=== PATIENT | male | born 1950 | race Caucasian/White ===

== ENCOUNTER 2016-12-21 12:34 | Inpatient (IN) | payer BC, OTHER ==
[~2016-12-21] VITALS: Ht 167.6 cm; Wt 88.5 kg
[~2016-12-21 12:34] MED LIST: ITRA100C PO; SULF1TAB24 PO
[2016-12-21 13:09] LABS: BARBITURATES NEG (NEG); BENZODIAZEPINES NEG (NEG); CANNABINOIDS NEG (NEG); COCAINE NEG (NEG); METHADONE NEG (NEG); OPIATES NEG (NEG); PHENCYCLIDINE NEG (NEG)
--- NOTE | 2016-12-21 13:12 | PHYS DOC ---
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 Symptoms started 3 days ago when he woke up in the morning. 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 Patient denies any difficulty speaking or swallowing ambulating with denies any unilateral weakness numbness or tingling. He said that the right side of his body has felt cold intermittently and he assured me that it was not a weakness numbness or tingling rather just the temperature of his skin was cold. He has diabetes and hypertension but denies any prior strokes. Review of Systems Review of Systems Constitutional: Denies fever or chills [] Eyes: Denies change in visual acuity. + loss of vision. HENT: Denies nasal congestion or sore throat [] Respiratory: Denies cough or shortness of breath [] Cardiovascular: No additional information not addressed in HPI [] GI: Denies abdominal pain, nausea, vomiting, bloody stools or diarrhea [] : Denies dysuria or hematuria [] Musculoskeletal: Denies back pain or joint pain [] Integument: Denies rash or skin lesions [] Neurologic: Denies headache, focal weakness or sensory changes [] Allergies Allergies Allergies Coded Allergies Type Severity Reaction Last Updated Verified No Known Drug Allergies 03/25/16 No Physical Exam Physical Exam Constitutional: Well developed, well nourished, no acute distress, non-toxic appearance. [] HENT: Normocephalic, atraumatic, bilateral external ears normal, oropharynx moist, no oral exudates, nose normal. [] Eyes: Pupils are quite dilated and nonreactive at this time. He does have left- sided visual loss. Neck: Normal range of motion, no tenderness, supple, no stridor. [] Cardiovascular:Heart rate regular rhythm, no murmur [] Lungs & Thorax: Bilateral breath sounds clear to auscultation [] Abdomen: Bowel sounds normal, soft, no tenderness, no masses, no pulsatile masses. [] Skin: Warm, dry, no erythema, no rash. [] Back: No tenderness, no CVA tenderness. [] Extremities: No tenderness, no cyanosis, no clubbing, ROM intact, no edema. [] Neurologic: Alert and oriented X 3, normal motor function, normal sensory function, no focal deficits noted. [] Current Patient Data Vital Signs Vital Signs Date Time Temp Pulse Resp B/P (MAP) Pulse Ox O2 Delivery O2 Flow Rate FiO2 12/21/16 13:19 76 19 123/73 (90) 98 Room Air 12/21/16 12:59 98.1 98.1 Lab Values Laboratory Tests Test 12/21/16 12:45 12/21/16 13:10 Urine Opiates Screen Neg (NEG) Urine Methadone Screen Neg (NEG) Urine Barbiturates Neg (NEG) Urine Phencyclidine Screen Neg (NEG) Urine Amphetamine/Methamphetamine Neg (NEG) Urine Benzodiazepines Screen Neg (NEG) Urine Cocaine Screen Neg (NEG) Urine Cannabinoids Screen Neg (NEG) Urine Ethyl Alcohol Neg (NEG) White Blood Count 10.2 x10^3/uL (4.0-11.0) Red Blood Count 4.99 x10^6/uL (4.30-5.70) Hemoglobin 15.4 g/dL (13.0-17.5) Hematocrit 44.2 % (39.0-53.0) Mean Corpuscular Volume 89 fL (79-100) Mean Corpuscular Hemoglobin 31 pg (25-35) Mean Corpuscular Hemoglobin Concent 35 g/dL (31-37) Red Cell Distribution Width 13.2 % (11.5-14.5) Platelet Count 165 x10^3/uL (140-400) Neutrophils (%) (Auto) 57 % (31-73) Lymphocytes (%) (Auto) 34 % (24-48) Monocytes (%) (Auto) 6 % (0-9) Eosinophils (%) (Auto) 2 % (0-3) Basophils (%) (Auto) 1 % (0-3) Neutrophils # (Auto) 5.8 x10^3uL (1.8-7.7) Lymphocytes # (Auto) 3.4 x10^3/uL (1.0-4.8) Monocytes # (Auto) 0.6 x10^3/uL (0.0-1.1) Eosinophils # (Auto) 0.2 x10^3/uL (0.0-0.7) Basophils # (Auto) 0.1 x10^3/uL (0.0-0.2) Prothrombin Time 12.7 SEC (11.7-14.0) Prothrombin Time INR 1.0 (0.8-1.1) PTT 26 SEC (24-38) Sodium Level 137 mmol/L (136-145) Potassium Level 4.5 mmol/L (3.5-5.1) Chloride Level 104 mmol/L (98-107) Carbon Dioxide Level 26 mmol/L (21-32) Anion Gap 7 (6-14) Blood Urea Nitrogen 22 mg/dL (8-26) Creatinine 0.9 mg/dL (0.7-1.3) Estimated GFR (Cockcroft-Gault) 85.0 BUN/Creatinine Ratio 24 (6-20) H Glucose Level 142 mg/dL (70-99) H Calcium Level 9.5 mg/dL (8.5-10.1) Magnesium Level 1.8 mg/dL (1.8-2.4) Total Bilirubin 0.3 mg/dL (0.2-1.0) Aspartate Amino Transferase (AST) 16 U/L (15-37) Alanine Aminotransferase (ALT) 24 U/L (16-63) Alkaline Phosphatase 100 U/L (46-116) Creatine Kinase 102 U/L (39-308) Troponin I Quantitative < 0.017 ng/mL (0.000-0.055) [id number]-Type Natriuretic Peptide 67 pg/mL (0-124) Total Protein 7.4 g/dL (6.4-8.2) Albumin 3.5 g/dL (3.4-5.0) Albumin/Globulin Ratio 0.9 (1.0-1.7) L Thyroid Stimulating Hormone (TSH) 0.676 uIU/mL (0.358-3.74) Ethyl Alcohol Level < 10 mg/dL (0-10) Laboratory Tests 12/21/16 13:10 Laboratory Tests 12/21/16 13:10 EKG EKG [] Radiology/Procedures Radiology/Procedures Exam performed: CT scan of the head without contrast. Date of Service: 12/21/16. Comparison: None available. Clinical History: Patient woke up Sunday morning with revision. Technique: Helical acquisitions are obtained from the foramen magnum to the vertex without intravenous administration of contrast. Findings: The ventricles are midline without evidence of dilatation. Normal sandoval-white differentiation is maintained. There is no extra axial fluid collection, intraparenchymal hemorrhage or mass lesion. The visualized portions of the orbits, paranasal sinuses and the mastoid air cells appear clear. The calvarium is intact. Impression: 1. No acute intracranial process detected. PQRS Compliance Statement: One or more of the following individualized dose reduction techniques were utilized for this examination: 1. Automated exposure control 2. Adjustment of the mA and/or kV according to patient size 3. Use of iterative reconstruction technique DICTATED and SIGNED BY: MARLON REIS MD DATE: 12/21/16 8564 Course & Med Decision Making Course & Med Decision Making I spoke to Dr. lora and she requested CT head without contrast and then brain with and without depending on his creatinine level. CT looks okay so brain MRI with and without contrast are being ordered and patient was given aspirin and will be admitted to the hospital for further observation and treatment. Patient aware and agreeable with plan. Dragon Disclaimer Dragon Disclaimer This electronic medical record was generated, in whole or in part, using a voice recognition dictation system. Departure Departure Impression: Primary Impression: Left homonymous hemianopsia Disposition: ADMITTED INPATIENT Condition: GOOD Referrals: GLENN ANGEL MD (PCP) FAWN SHAW DO December 21, 2016 13:12
[2016-12-21 13:16] LABS: BASO # 0.1 x10^3/uL (0.0-0.2); BASO % 1 % (0-3); EOS % 2 % (0-3); HEMATOCRIT 44.2 % (39.0-53.0); HEMOGLOBIN 15.4 g/dL (13.0-17.5); LYMPH # 3.4 x10^3/uL (1.0-4.8); LYMPH % 34 % (24-48); MEAN CORPUSCULAR HEMOGLOBIN 31 pg (25-35); MEAN CORPUSCULAR HGB CONC 35 g/dL (31-37); MEAN CORPUSCULAR VOLUME 89 fL (79-100); MONO % 6 % (0-9); NEUT % 57 % (31-73); PLATELET COUNT 165 x10^3/uL (140-400); RED BLOOD COUNT 4.99 x10^6/uL (4.30-5.70); RED CELL DISTRIBUTION WIDTH 13.2 % (11.5-14.5); WHITE BLOOD COUNT 10.2 x10^3/uL (4.0-11.0)
[2016-12-21 13:34] LABS: CALCIUM 9.5 mg/dL (8.5-10.1); CREATININE 0.9 mg/dL (0.7-1.3); POTASSIUM 4.5 mmol/L (3.5-5.1); PROTHROMBIN TIME PATIENT 12.7 SEC (11.7-14.0)
[2016-12-21 13:40] LABS: ALBUMIN 3.5 g/dL (3.4-5.0); ALBUMIN/GLOBULIN RATIO 0.9 (1.0-1.7); MAGNESIUM 1.8 mg/dL (1.8-2.4); TOTAL BILIRUBIN 0.3 mg/dL (0.2-1.0); TOTAL PROTEIN 7.4 g/dL (6.4-8.2)
--- NOTE | 2016-12-21 14:00 | RAD ---
Exam performed: CT scan of the head without contrast. Date of Service: 12/21/16. Comparison: None available. Clinical History: Patient woke up Sunday morning with revision. Technique: Helical acquisitions are obtained from the foramen magnum to the vertex without intravenous administration of contrast. Findings: The ventricles are midline without evidence of dilatation. Normal sandoval-white differentiation is maintained. There is no extra axial fluid collection, intraparenchymal hemorrhage or mass lesion. The visualized portions of the orbits, paranasal sinuses and the mastoid air cells appear clear. The calvarium is intact. Impression: 1. No acute intracranial process detected. PQRS Compliance Statement: One or more of the following individualized dose reduction techniques were utilized for this examination: 1. Automated exposure control 2. Adjustment of the mA and/or kV according to patient size 3. Use of iterative reconstruction technique
[2016-12-21] MEDS ORDERED: fentaNYL PF VIAL 100 MCG/2 ML VIAL IV PRN (14:15)
[2016-12-21] MEDS ORDERED: ASPIRIN 325 MG TABLET PO ONE (14:15)
[2016-12-21] MEDS ORDERED: ONDANSETRON PF 4 MG/2 ML VIAL. IV PRN (14:15)
[2016-12-21 16:30] VITALS: BP 121/58
[2016-12-21] MEDS ORDERED: GADOBUTROL 10 MMOL/10 ML VIAL IV ONE (16:45)
[2016-12-21] MEDS ORDERED: gliburide PO (17:29)
[2016-12-21] MEDS ORDERED: LISI10TA2 PO (17:29)
[2016-12-21] MEDS ORDERED: METF-620 PO (17:29)
--- NOTE | 2016-12-21 17:39 | RAD ---
PROCEDURE MRI brain without and with contrast HISTORY Loss of peripheral vision for the past 8 days. Left homonymous hemianopsia TECHNIQUE Multiplanar MRI sequences of the brain acquired without and with 9 milliliters Gadovist intravenous contrast COMPARISON No priors FINDINGS There is an oblong 2 centimeter acute ischemic infarct of the medial right temporal lobe just superior of the hippocampus and temporal horn, given the history of left hemianopsia this may involve the Lynne loop optic striations. No infarction of the thalami or occipital lobes. A few small scattered T2 weighted hyperintense lesions of the posterior frontal and parietal lobe white matter and lesions of the central pontine white matter likely mild changes of chronic microvascular ischemic injury. No intracranial hemorrhage, mass, hydrocephalus or pathologic intracranial enhancement. Orbits, mastoids and paranasal sinuses are unremarkable. IMPRESSION 1. 2 centimeter acute infarct of the right medial temporal lobe as described above. 2. Mild changes of chronic microvascular ischemic injury of the pontine and cerebral white matter. 3. Critical results called to the patient's nurse Shey 5:35 p.m. December 21, 2016. Read back of report was performed. Electronically signed by: Nathaniel Miller MD (December 21, 2016 17:38:20)
--- NOTE | 2016-12-21 17:58 | PDOC2 ---
NEUROLOGY CONSULT Date of Admission Date of Admission DATE: 12/21/16 TIME: 17:46 Reason for Consult Reason for Consult: IMPRESSION: Subacute right medial temporal lobe infract. Left homonymous hemianopia x 3 days. DM HTN HLD Degenerative spine disease. Smoking x 45 years. RECOMMENDATIONS/PLAN: ASA 325 mg daily. Brain MRI performed. Carotid A US + Doppler Echo + Bubble study. Fasting lipid panel. CXR Discussed with his at bedside in the ER. HISTORY OF THE PRESENT ILLNESS: 66-y-old male patient with Hx of HTN, HLD, DM developed symptoms of visual disturbances described as only can see a right half size of object but not the left half. His both eyes had deficits. he stated he has been having such visual symptoms for about 3 days, but sensory of motor deficits. He was seen in eye clinic then came to the ER of [facility]. PAST MEDICAL HISTORY: Please see above. PAST SURGERY HISTORY: Cholecystectomy Neck and back surgeries. Right knee surgery. ALLERGY: Reviewed. MEDICATIONS: Refer to [facility] FAMILY HISTORY: His father had CVA. His mother had fugal pneumonia. SOCIAL HISTORY: Lives with his at home. Denies illicit drug use. He smokes 2 packs of cigarettes a day for 45 years. He drinks alcohol occasionally. REVIEW OF SYSTEMS: Constitutional: No malnutrition, weight loss, cachexia. Head: No traumatic brain or head injury. Skin: No edema, or rash. Ear: No infection. Eyes: No vision loss or color blindness. Nose: No bleeding or purulent discharges. Hearing: No hearing decrease. Neck: No injury. Cardiac: HTN, HLD. Pulmonary: No pneumonia. GI: No GI ulcer, GI bleeding. Urinary/genital: No dysuria, incontinence, urinary retention. Endocrinologic: Diabetes Mellitus. Skeletomuscular: No muscular atrophy, deformity. Neurological: see HP. Psychiatric: Denies drug use/abuse. Otherwise, not -mynqd review of systems. PHYSICAL EXAMINATION: General appearance is in subacute distress. HEENT: Normocephalic and nontraumatic. Eyes, nose, ears, and throat are unremarkable. Neck is supple. No lymphadenopathy. No crepitus. Cardiovascular: S1, S2, regular rate and rhythm. Pulmonary: Clear to auscultation bilaterally. Abdomen: Bowel sounds are positive. Abdomen is soft, nontender, and nondistended. Extremities: No rash, lesions, or edema. No restriction of range of motion NEUROLOGICAL EXAMINATION: Alert Oriented to time, place and person. PERRL. EOMI. Left homonymous hemianopia. CN: no other focal findings. Muscle tone: within normal. Muscle strength: 5 DTR: 2 Plantar reflex: Flexor response bilaterally Gait: not examined in bed. Sensory exam: no obvious abnormal findings. No acute cerebellar signs elicited. F-T-N test fine. Current Medications Current Medications Current Medications Aspirin (Tony Aspirin) 325 mg 1X ONCE PO Last administered on 12/21/16 14:57 ; Start 12/21/16 at 14:15; Stop 12/21/16 at 14:16; Status DC Ondansetron HCl (Zofran) 4 mg PRN Q8HRS PRN IV NAUSEA/VOMITING; Start 12/21/16 at 14:15; Stop 12/22/16 at 14:14 Fentanyl Citrate (Fentanyl 2ml Vial) 50 mcg PRN Q2HR PRN IV PAIN; Start at 14:15; Stop 12/22/16 at 14:14 Gadobutrol (Gadavist) 9 mmol 1X ONCE IV Last administered on 12/21/16 17:05; Start 12/21/16 at 16:45; Stop 12/21/16 at 16:46; Status DC Active Scripts Active Reported Metformin Hcl 1,000 Mg Tablet 1,000 Mg PO BID [gliburide] 10 Mg PO BID Lisinopril 10 Mg Tablet 1 Tab PO QHS Allergies Allergies: Coded Allergies: No Known Drug Allergies (Unverified , 03/25/16) Vitals VITALS Vital Signs Date Time Temp Pulse Resp B/P (MAP) Pulse Ox O2 Delivery O2 Flow Rate FiO2 12/21/16 16:30 97.6 88 18 121/58 (79) 97 Room Air 97.6 Labs Labs Laboratory Tests Test 12/21/16 12:45 12/21/16 13:10 Urine Opiates Screen Neg (NEG) Urine Methadone Screen Neg (NEG) Urine Barbiturates Neg (NEG) Urine Phencyclidine Screen Neg (NEG) Urine Amphetamine/Methamphetamine Neg (NEG) Urine Benzodiazepines Screen Neg (NEG) Urine Cocaine Screen Neg (NEG) Urine Cannabinoids Screen Neg (NEG) Urine Ethyl Alcohol Neg (NEG) White Blood Count 10.2 x10^3/uL (4.0-11.0) Red Blood Count 4.99 x10^6/uL (4.30-5.70) Hemoglobin 15.4 g/dL (13.0-17.5) Hematocrit 44.2 % (39.0-53.0) Mean Corpuscular Volume 89 fL (79-100) Mean Corpuscular Hemoglobin 31 pg (25-35) Mean Corpuscular Hemoglobin Concent 35 g/dL (31-37) Red Cell Distribution Width 13.2 % (11.5-14.5) Platelet Count 165 x10^3/uL (140-400) Neutrophils (%) (Auto) 57 % (31-73) Lymphocytes (%) (Auto) 34 % (24-48) Monocytes (%) (Auto) 6 % (0-9) Eosinophils (%) (Auto) 2 % (0-3) Basophils (%) (Auto) 1 % (0-3) Neutrophils # (Auto) 5.8 x10^3uL (1.8-7.7) Lymphocytes # (Auto) 3.4 x10^3/uL (1.0-4.8) Monocytes # (Auto) 0.6 x10^3/uL (0.0-1.1) Eosinophils # (Auto) 0.2 x10^3/uL (0.0-0.7) Basophils # (Auto) 0.1 x10^3/uL (0.0-0.2) Prothrombin Time 12.7 SEC (11.7-14.0) Prothromb Time International Ratio 1.0 (0.8-1.1) Activated Partial Thromboplast Time 26 SEC (24-38) Sodium Level 137 mmol/L (136-145) Potassium Level 4.5 mmol/L (3.5-5.1) Chloride Level 104 mmol/L (98-107) Carbon Dioxide Level 26 mmol/L (21-32) Anion Gap 7 (6-14) Blood Urea Nitrogen 22 mg/dL (8-26) Creatinine 0.9 mg/dL (0.7-1.3) Estimated GFR (Cockcroft-Gault) 85.0 BUN/Creatinine Ratio 24 (6-20) Glucose Level 142 mg/dL (70-99) Calcium Level 9.5 mg/dL (8.5-10.1) Magnesium Level 1.8 mg/dL (1.8-2.4) Total Bilirubin 0.3 mg/dL (0.2-1.0) Aspartate Amino Transf (AST/SGOT) 16 U/L (15-37) Alanine Aminotransferase (ALT/SGPT) 24 U/L (16-63) Alkaline Phosphatase 100 U/L (46-116) Creatine Kinase 102 U/L (39-308) Troponin I Quantitative < 0.017 ng/mL (0.000-0.055) VQ-Aku-H-Type Natriuretic Peptide 67 pg/mL (0-124) Total Protein 7.4 g/dL (6.4-8.2) Albumin 3.5 g/dL (3.4-5.0) Albumin/Globulin Ratio 0.9 (1.0-1.7) Thyroid Stimulating Hormone (TSH) 0.676 uIU/mL (0.358-3.74) Ethyl Alcohol Level < 10 mg/dL (0-10) Laboratory Tests Test 12/21/16 12:45 12/21/16 13:10 Urine Opiates Screen Neg (NEG) Urine Methadone Screen Neg (NEG) Urine Barbiturates Neg (NEG) Urine Phencyclidine Screen Neg (NEG) Urine Amphetamine/Methamphetamine Neg (NEG) Urine Benzodiazepines Screen Neg (NEG) Urine Cocaine Screen Neg (NEG) Urine Cannabinoids Screen Neg (NEG) Urine Ethyl Alcohol Neg (NEG) White Blood Count 10.2 x10^3/uL (4.0-11.0) Red Blood Count 4.99 x10^6/uL (4.30-5.70) Hemoglobin 15.4 g/dL (13.0-17.5) Hematocrit 44.2 % (39.0-53.0) Mean Corpuscular Volume 89 fL (79-100) Mean Corpuscular Hemoglobin 31 pg (25-35) Mean Corpuscular Hemoglobin Concent 35 g/dL (31-37) Red Cell Distribution Width 13.2 % (11.5-14.5) Platelet Count 165 x10^3/uL (140-400) Neutrophils (%) (Auto) 57 % (31-73) Lymphocytes (%) (Auto) 34 % (24-48) Monocytes (%) (Auto) 6 % (0-9) Eosinophils (%) (Auto) 2 % (0-3) Basophils (%) (Auto) 1 % (0-3) Neutrophils # (Auto) 5.8 x10^3uL (1.8-7.7) Lymphocytes # (Auto) 3.4 x10^3/uL (1.0-4.8) Monocytes # (Auto) 0.6 x10^3/uL (0.0-1.1) Eosinophils # (Auto) 0.2 x10^3/uL (0.0-0.7) Basophils # (Auto) 0.1 x10^3/uL (0.0-0.2) Prothrombin Time 12.7 SEC (11.7-14.0) Prothromb Time International Ratio 1.0 (0.8-1.1) Activated Partial Thromboplast Time 26 SEC (24-38) Sodium Level 137 mmol/L (136-145) Potassium Level 4.5 mmol/L (3.5-5.1) Chloride Level 104 mmol/L (98-107) Carbon Dioxide Level 26 mmol/L (21-32) Anion Gap 7 (6-14) Blood Urea Nitrogen 22 mg/dL (8-26) Creatinine 0.9 mg/dL (0.7-1.3) Estimated GFR (Cockcroft-Gault) 85.0 BUN/Creatinine Ratio 24 (6-20) Glucose Level 142 mg/dL (70-99) Calcium Level 9.5 mg/dL (8.5-10.1) Magnesium Level 1.8 mg/dL (1.8-2.4) Total Bilirubin 0.3 mg/dL (0.2-1.0) Aspartate Amino Transf (AST/SGOT) 16 U/L (15-37) Alanine Aminotransferase (ALT/SGPT) 24 U/L (16-63) Alkaline Phosphatase 100 U/L (46-116) Creatine Kinase 102 U/L (39-308) Troponin I Quantitative < 0.017 ng/mL (0.000-0.055) RB-Xor-I-Type Natriuretic Peptide 67 pg/mL (0-124) Total Protein 7.4 g/dL (6.4-8.2) Albumin 3.5 g/dL (3.4-5.0) Albumin/Globulin Ratio 0.9 (1.0-1.7) Thyroid Stimulating Hormone (TSH) 0.676 uIU/mL (0.358-3.74) Ethyl Alcohol Level < 10 mg/dL (0-10) RICK HALL MD December 21, 2016 17:58
[2016-12-21] MEDS: glyBURIDE 5 MG TABLET PO SCH (18:00)
--- NOTE | 2016-12-21 18:07 | PDOC1 ---
History and Physical Date of Admission Date of Admission DATE: 12/21/16 TIME: 18:01 Identification/Chief Complaint Chief Complaint vision change Problems: Source Source: Chart review, Patient History of Present Illness History of Present Illness Mr. Vu is a 66 year old male admit from ER, sent by visiting housekeeper office, 3 days of left-sided homonymous hemianopsia. 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 No difficulty speaking or swallowing ambulating with denies any unilateral weakness numbness or tingling. Past Medical History Cardiovascular: HTN Pulmonary: No pertinent hx GI: No pertinent hx Heme/Onc: No pertinent hx Hepatobiliary: No pertinent hx Psych: No pertinent hx Rheumatologic: No pertinent hx Infectious disease: No pertinent hx ENT: No pertinent hx Endocrine: Diabetes Family History Family History: Other (TIA, dad) Family History: Parent Social History Smoke: 1 pack per day ALCOHOL: none Drugs: None Current Problem List Problem List Problems Medical Problems: (1) Left homonymous hemianopsia Status: Acute Problems: Current Medications Current Medications Current Medications Aspirin (Tony Aspirin) 325 mg 1X ONCE PO Last administered on 12/21/16t 14:57 ; Start 12/21/16 at 14:15; Stop 12/21/16 at 14:16; Status DC Ondansetron HCl (Zofran) 4 mg PRN Q8HRS PRN IV NAUSEA/VOMITING; Start 12/21/16 at 14:15; Stop 12/22/16 at 14:14 Fentanyl Citrate (Fentanyl 2ml Vial) 50 mcg PRN Q2HR PRN IV PAIN; Start at 14:15; Stop 12/22/16 at 14:14 Gadobutrol (Gadavist) 9 mmol 1X ONCE IV Last administered on 12/21/16t 17:05; Start 12/21/16 at 16:45; Stop 12/21/16 at 16:46; Status DC Aspirin (Tony Aspirin) 325 mg DAILYWBKFT PO ; Start 12/22/16 at 08:00 Active Scripts Active Reported Metformin Hcl 1,000 Mg Tablet 1,000 Mg PO BID [gliburide] 10 Mg PO BID Lisinopril 10 Mg Tablet 1 Tab PO QHS Allergies Allergies: Coded Allergies: No Known Drug Allergies (Unverified , 03/25/16) ROS General: No: Chills, Night Sweats, Fatigue, Malaise, Appetite, Other PSYCHOLOGICAL ROS: No: Anxiety, Behavioral Disorder, Concentration difficultie , Decreased libido, Depression, Disorientation, Hallucinations, Hostility, Irritablity, Memory difficulties, Mood Swings, Obsessive thoughts, Physical abuse, Sexual abuse, Sleep disturbances, Suicidal ideation, Other Eyes: No Blurry vision, No Decreased vision, No Double vision, No Dry eyes, No Excessive tearing, No Eye Pain, No Itchy Eyes, No Loss of vision, No Photophobia , No Scotomata, No Uses contacts, No Uses glasses, No Other HEENT: No: Heacaches, Visual Changes, Hearing change, Nasal congestion, Nasal discharge, Oral lesions, Sinus pain, Sore Throat, Epistaxis, Sneezing, Snoring, Tinnitus, Vertigo, Vocal changes, Other Respiratory: No: Cough, Hemoptysis, Orthopnea, Pleuritic Pain, Shortness of breath, SOB with excertion, Sputum Changes, Stridor, Tachypnea, Wheezing, Other Cardiovascular: No Chest Pain, No Palpitations, No Orthopnea, No Paroxysmal Noc. Dyspnea, No Edema, No Lt Headedness, No Other Gastrointestinal: No Nausea, No Vomiting, No Abdominal Pain, No Diarrhea, No Constipation, No Melena, No Hematochezia, No Other Genitourinary: No Dysuria, No Frequency, No Incontinence, No Hematuria, No Retention, No Discharge, No Urgency, No Pain, No Flank Pain, No Other, No , No , No , No , No , No , No Musculoskeletal: No Gait Disturbance, No Joint Pain, No Joint Stiffness, No Joint Swelling, No Muscle Pain, No Muscular Weakness, No Pain In:, No Swelling In:, No Other Neurological: Yes Impaired Coord/balance, Yes Visual Changes, No Behavorial Changes, No Bowel/Bladder ControlChng, No Confusion, No Dizziness, No Gait Disturbance, No Headaches, No Memory Loss, No Numbness/ Tingling, No Seizures, No Speech Problems, No Tremors, No Weakness, No Other Skin: No Dry Skin, No Eczema, No Hair Changes, No Lumps, No Mole Changes, No Mottling, No Nail Changes, No Pruritus, No Rash, No Skin Lesion Changes, No Other, No Acne Physical Exam General: Alert, Oriented X3, No acute distress HEENT: Atraumatic, PERRLA, EOMI Lungs: Normal air movement Heart: S1S2, no murmurs Abdomen: Normal bowel sounds, Soft Extremities: No clubbing, No cyanosis, No edema, Normal pulses Skin: No rashes, No significant lesion Neuro: Normal gait, Normal speech, Normal tone, Sensation intact Psych/Mental Status: Mental status NL, Mood NL Vitals Vitals Vital Signs Date Time Temp Pulse Resp B/P (MAP) Pulse Ox O2 Delivery O2 Flow Rate FiO2 12/21/16 16:30 97.6 88 18 121/58 (79) 97 Room Air 97.6 Labs Labs Laboratory Tests Test 12/21/16 12:45 12/21/16 13:10 Urine Opiates Screen Neg (NEG) Urine Methadone Screen Neg (NEG) Urine Barbiturates Neg (NEG) Urine Phencyclidine Screen Neg (NEG) Urine Amphetamine/Methamphetamine Neg (NEG) Urine Benzodiazepines Screen Neg (NEG) Urine Cocaine Screen Neg (NEG) Urine Cannabinoids Screen Neg (NEG) Urine Ethyl Alcohol Neg (NEG) White Blood Count 10.2 x10^3/uL (4.0-11.0) Red Blood Count 4.99 x10^6/uL (4.30-5.70) Hemoglobin 15.4 g/dL (13.0-17.5) Hematocrit 44.2 % (39.0-53.0) Mean Corpuscular Volume 89 fL (79-100) Mean Corpuscular Hemoglobin 31 pg (25-35) Mean Corpuscular Hemoglobin Concent 35 g/dL (31-37) Red Cell Distribution Width 13.2 % (11.5-14.5) Platelet Count 165 x10^3/uL (140-400) Neutrophils (%) (Auto) 57 % (31-73) Lymphocytes (%) (Auto) 34 % (24-48) Monocytes (%) (Auto) 6 % (0-9) Eosinophils (%) (Auto) 2 % (0-3) Basophils (%) (Auto) 1 % (0-3) Neutrophils # (Auto) 5.8 x10^3uL (1.8-7.7) Lymphocytes # (Auto) 3.4 x10^3/uL (1.0-4.8) Monocytes # (Auto) 0.6 x10^3/uL (0.0-1.1) Eosinophils # (Auto) 0.2 x10^3/uL (0.0-0.7) Basophils # (Auto) 0.1 x10^3/uL (0.0-0.2) Prothrombin Time 12.7 SEC (11.7-14.0) Prothromb Time International Ratio 1.0 (0.8-1.1) Activated Partial Thromboplast Time 26 SEC (24-38) Sodium Level 137 mmol/L (136-145) Potassium Level 4.5 mmol/L (3.5-5.1) Chloride Level 104 mmol/L (98-107) Carbon Dioxide Level 26 mmol/L (21-32) Anion Gap 7 (6-14) Blood Urea Nitrogen 22 mg/dL (8-26) Creatinine 0.9 mg/dL (0.7-1.3) Estimated GFR (Cockcroft-Gault) 85.0 BUN/Creatinine Ratio 24 (6-20) Glucose Level 142 mg/dL (70-99) Calcium Level 9.5 mg/dL (8.5-10.1) Magnesium Level 1.8 mg/dL (1.8-2.4) Total Bilirubin 0.3 mg/dL (0.2-1.0) Aspartate Amino Transf (AST/SGOT) 16 U/L (15-37) Alanine Aminotransferase (ALT/SGPT) 24 U/L (16-63) Alkaline Phosphatase 100 U/L (46-116) Creatine Kinase 102 U/L (39-308) Troponin I Quantitative < 0.017 ng/mL (0.000-0.055) YZ-[id number]-R-Type Natriuretic Peptide 67 pg/mL (0-124) Total Protein 7.4 g/dL (6.4-8.2) Albumin 3.5 g/dL (3.4-5.0) Albumin/Globulin Ratio 0.9 (1.0-1.7) Thyroid Stimulating Hormone (TSH) 0.676 uIU/mL (0.358-3.74) Ethyl Alcohol Level < 10 mg/dL (0-10) Laboratory Tests Test 12/21/16 12:45 12/21/16 13:10 Urine Opiates Screen Neg (NEG) Urine Methadone Screen Neg (NEG) Urine Barbiturates Neg (NEG) Urine Phencyclidine Screen Neg (NEG) Urine Amphetamine/Methamphetamine Neg (NEG) Urine Benzodiazepines Screen Neg (NEG) Urine Cocaine Screen Neg (NEG) Urine Cannabinoids Screen Neg (NEG) Urine Ethyl Alcohol Neg (NEG) White Blood Count 10.2 x10^3/uL (4.0-11.0) Red Blood Count 4.99 x10^6/uL (4.30-5.70) Hemoglobin 15.4 g/dL (13.0-17.5) Hematocrit 44.2 % (39.0-53.0) Mean Corpuscular Volume 89 fL (79-100) Mean Corpuscular Hemoglobin 31 pg (25-35) Mean Corpuscular Hemoglobin Concent 35 g/dL (31-37) Red Cell Distribution Width 13.2 % (11.5-14.5) Platelet Count 165 x10^3/uL (140-400) Neutrophils (%) (Auto) 57 % (31-73) Lymphocytes (%) (Auto) 34 % (24-48) Monocytes (%) (Auto) 6 % (0-9) Eosinophils (%) (Auto) 2 % (0-3) Basophils (%) (Auto) 1 % (0-3) Neutrophils # (Auto) 5.8 x10^3uL (1.8-7.7) Lymphocytes # (Auto) 3.4 x10^3/uL (1.0-4.8) Monocytes # (Auto) 0.6 x10^3/uL (0.0-1.1) Eosinophils # (Auto) 0.2 x10^3/uL (0.0-0.7) Basophils # (Auto) 0.1 x10^3/uL (0.0-0.2) Prothrombin Time 12.7 SEC (11.7-14.0) Prothromb Time International Ratio 1.0 (0.8-1.1) Activated Partial Thromboplast Time 26 SEC (24-38) Sodium Level 137 mmol/L (136-145) Potassium Level 4.5 mmol/L (3.5-5.1) Chloride Level 104 mmol/L (98-107) Carbon Dioxide Level 26 mmol/L (21-32) Anion Gap 7 (6-14) Blood Urea Nitrogen 22 mg/dL (8-26) Creatinine 0.9 mg/dL (0.7-1.3) Estimated GFR (Cockcroft-Gault) 85.0 BUN/Creatinine Ratio 24 (6-20) Glucose Level 142 mg/dL (70-99) Calcium Level 9.5 mg/dL (8.5-10.1) Magnesium Level 1.8 mg/dL (1.8-2.4) Total Bilirubin 0.3 mg/dL (0.2-1.0) Aspartate Amino Transf (AST/SGOT) 16 U/L (15-37) Alanine Aminotransferase (ALT/SGPT) 24 U/L (16-63) Alkaline Phosphatase 100 U/L (46-116) Creatine Kinase 102 U/L (39-308) Troponin I Quantitative < 0.017 ng/mL (0.000-0.055) TH-Yjv-D-Type Natriuretic Peptide 67 pg/mL (0-124) Total Protein 7.4 g/dL (6.4-8.2) Albumin 3.5 g/dL (3.4-5.0) Albumin/Globulin Ratio 0.9 (1.0-1.7) Thyroid Stimulating Hormone (TSH) 0.676 uIU/mL (0.358-3.74) Ethyl Alcohol Level < 10 mg/dL (0-10) VTE Prophylaxis Ordered VTE Prophylaxis Devices: Yes VTE Pharmacological Prophylaxi: No Assessment/Plan Assessment/Plan CVA, 2 centimeter 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
--- NOTE | 2016-12-21 18:57 | ACF ---
Admission Forms Criteria STROKE: ISCHEMIC Clinical Indications for Admission to Inpatient Care (Place 'X' for any and all applicable criteria): Admission is indicated for ANY ONE of the following(1)(2)(3)(4): [X]I. Acute stroke Extended stay beyond goal length of stay may be needed for(1)(2) [ ]a) Major deficit or clinical deterioration [ ]b) Hospital-acquired infection (eg, urinary tract infection, pneumonia) [ ]c) Embolic cause of stroke [ ]d) Venous thromboembolism(9) [ ]e) Seizures [ ]f) Bleeding (eg, cerebral) [ ]g) Increased intracranial pressure [ ]h) Comorbidities [ ]i) Surgical intervention The original [facility] content created by [employer] has been revised. The portions of the content which have been revised are identified through the use of italic text or in bold, and [facility] has neither reviewed nor approved the modified material. All other unmodified content is copyright [facility]. Please see references footnoted in the original [facility] edition 2016 Admission Criteria Met?: Yes ALIZA SANDOVAL December 21, 2016 18:57
[2016-12-21 19:45] VITALS: BP 113/65
[2016-12-21] MEDS ORDERED: NICOTINE POLACRILEX 2MG GUM PACKAGE of 12. BC PRN (20:00)
[2016-12-21] MEDS ORDERED: NICOTINE 21MG PATCH. TD PRN (20:00)
[2016-12-21] MEDS: LISINOPRIL 10 MG TABLET PO SCH (20:21)
[2016-12-21] MEDS ORDERED: ATORVASTATIN CALCIUM 10 MG TABLET. PO SCH (21:00)
[2016-12-21 23:12] VITALS: BP 140/72
[2016-12-22 03:12] VITALS: BP 126/67
[2016-12-22 04:44] LABS: BASO # 0.1 x10^3/uL (0.0-0.2); BASO % 1 % (0-3); EOS % 3 % (0-3); HEMATOCRIT 40.8 % (39.0-53.0); HEMOGLOBIN 14.1 g/dL (13.0-17.5); LYMPH % 44 % (24-48); MEAN CORPUSCULAR HEMOGLOBIN 31 pg (25-35); MEAN CORPUSCULAR HGB CONC 35 g/dL (31-37); MEAN CORPUSCULAR VOLUME 89 fL (79-100); MONO % 6 % (0-9); NEUT % 46 % (31-73); PLATELET COUNT 148 x10^3/uL (140-400); RED CELL DISTRIBUTION WIDTH 13.4 % (11.5-14.5); WHITE BLOOD COUNT 9.1 x10^3/uL (4.0-11.0)
[2016-12-22 04:55] LABS: CALCIUM 8.7 mg/dL (8.5-10.1); CREATININE 0.9 mg/dL (0.7-1.3)
[2016-12-22 05:03] LABS: CHOLESTEROL/HDL RATIO 7.5
[2016-12-22 07:15] VITALS: BP 128/70
--- NOTE | 2016-12-22 07:38 | RAD ---
Exam performed: 2 views of the chest. Indication: CVA smoking Date of Service:12/21/2016 7:48 PM . Comparison : Single view chest from 01/30/10 Findings: PA and lateral radiographs of the chest reveal a normal cardiomediastinal contour. The lungs are clear. No pleural fluid is seen. The visualized osseous structures are unremarkable. Impression: Radiographically normal chest.
--- NOTE | 2016-12-22 07:42 | RAD ---
Exam performed: Carotid Doppler. Clinical indication: Visual disturbances in both eyes with dizziness and generalized weakness. Uncontrolled hypertension. Patient is a diabetic and chronic smoker for more than 40 years Date of Service: 12/21/16. Comparison :None available. Technique: Real-time grayscale and Doppler evaluation of the carotid system was performed and images are obtained. Color flow and spectral analysis was observed. Findings: There is mild to moderate atheromatous plaquing within both carotid bulbs extending into the internal carotid artery bilaterally. Doppler interrogation reveals normal waveforms and velocities as follows . Peak systolic velocity within the right common carotid artery measures 108.0 cm/sec whereas on the left measures 0.30, 6.0 cm/sec . The peak systolic velocity within the right ICA measures 93.0 cm/sec whereas on the left measures 100.0 cm/sec. The ICA to CCA ratio on the right measures 1.12 whereas on the left measures 0.85. There is antegrade flow in both vertebral arteries. Impression: 1.Mild to moderate plaquing involving both carotid systems without any flow-limiting stenosis. Note: Stenosis calculations for CT, MR and conventional angiography are based upon determination of the distal ICA diameter in accordance with the NASCET methodology. Stenosis calculations for doppler studies are derived from validated velocity criteria which are known to correlate with NASCET methodology of determining stenosis.
[2016-12-22] MEDS: ASPIRIN 325 MG TABLET PO SCH (08:15)
[2016-12-22] MEDS: glyBURIDE 5 MG TABLET PO SCH ×2 (08:15→17:33)
[2016-12-22 10:55] VITALS: BP 133/73
--- NOTE | 2016-12-22 11:14 | PDOC ---
PROGRESS NOTES Chief Complaint Chief Complaint Acute CVA Left homonymous hemianopsia Tobacco use Hypertension DM Hyperlipidemia Degenerative spine disease History of Present Illness History of Present Illness No acute complaints. Patient states his eyesight is slightly improving where he can see a little more on the left side. Discussed care with his at bedside. Vitals Vitals Vital Signs Date Time Temp Pulse Resp B/P (MAP) Pulse Ox O2 Delivery O2 Flow Rate FiO2 12/22/16 08:00 Room Air 12/22/16 07:15 98.8 72 18 128/70 (89) 98 98.8 Physical Exam General: Alert, Oriented X3, No acute distress Heart: Regular rate, Normal S1, Normal S2 Lungs: Clear, Other (no wheezing) Abdomen: Normal bowel sounds, Soft Extremities: No clubbing, No cyanosis, No edema, Normal pulses Skin: No rashes, No significant lesion Labs LABS Laboratory Tests Test 12/21/16 12:45 12/21/16 13:10 12/21/16 20:58 12/22/16 03:22 Urine Opiates Screen Neg (NEG) Urine Methadone Screen Neg (NEG) Urine Barbiturates Neg (NEG) Urine Phencyclidine Screen Neg (NEG) Urine Amphetamine/Methamphetamine Neg (NEG) Urine Benzodiazepines Screen Neg (NEG) Urine Cocaine Screen Neg (NEG) Urine Cannabinoids Screen Neg (NEG) Urine Ethyl Alcohol Neg (NEG) White Blood Count 10.2 x10^3/uL (4.0-11.0) 9.1 x10^3/uL (4.0-11.0) Red Blood Count 4.99 x10^6/uL (4.30-5.70) 4.60 x10^6/uL (4.30-5.70) Hemoglobin 15.4 g/dL (13.0-17.5) 14.1 g/dL (13.0-17.5) Hematocrit 44.2 % (39.0-53.0) 40.8 % (39.0-53.0) Mean Corpuscular Volume 89 fL (79-100) 89 fL (79-100) Mean Corpuscular Hemoglobin 31 pg (25-35) 31 pg (25-35) Mean Corpuscular Hemoglobin Concent 35 g/dL (31-37) 35 g/dL (31-37) Red Cell Distribution Width 13.2 % (11.5-14.5) 13.4 % (11.5-14.5) Platelet Count 165 x10^3/uL (140-400) 148 x10^3/uL (140-400) Neutrophils (%) (Auto) 57 % (31-73) 46 % (31-73) Lymphocytes (%) (Auto) 34 % (24-48) 44 % (24-48) Monocytes (%) (Auto) 6 % (0-9) 6 % (0-9) Eosinophils (%) (Auto) 2 % (0-3) 3 % (0-3) Basophils (%) (Auto) 1 % (0-3) 1 % (0-3) Neutrophils # (Auto) 5.8 x10^3uL (1.8-7.7) 4.2 x10^3uL (1.8-7.7) Lymphocytes # (Auto) 3.4 x10^3/uL (1.0-4.8) 4.0 x10^3/uL (1.0-4.8) Monocytes # (Auto) 0.6 x10^3/uL (0.0-1.1) 0.6 x10^3/uL (0.0-1.1) Eosinophils # (Auto) 0.2 x10^3/uL (0.0-0.7) 0.3 x10^3/uL (0.0-0.7) Basophils # (Auto) 0.1 x10^3/uL (0.0-0.2) 0.1 x10^3/uL (0.0-0.2) Prothrombin Time 12.7 SEC (11.7-14.0) Prothromb Time International Ratio 1.0 (0.8-1.1) Activated Partial Thromboplast Time 26 SEC (24-38) Sodium Level 137 mmol/L (136-145) 137 mmol/L (136-145) Potassium Level 4.5 mmol/L (3.5-5.1) 4.0 mmol/L (3.5-5.1) Chloride Level 104 mmol/L (98-107) 104 mmol/L (98-107) Carbon Dioxide Level 26 mmol/L (21-32) 25 mmol/L (21-32) Anion Gap 7 (6-14) 8 (6-14) Blood Urea Nitrogen 22 mg/dL (8-26) 20 mg/dL (8-26) Creatinine 0.9 mg/dL (0.7-1.3) 0.9 mg/dL (0.7-1.3) Estimated GFR (Cockcroft-Gault) 85.0 85.0 BUN/Creatinine Ratio 24 (6-20) Glucose Level 142 mg/dL (70-99) 197 mg/dL (70-99) Calcium Level 9.5 mg/dL (8.5-10.1) 8.7 mg/dL (8.5-10.1) Magnesium Level 1.8 mg/dL (1.8-2.4) Total Bilirubin 0.3 mg/dL (0.2-1.0) Aspartate Amino Transf (AST/SGOT) 16 U/L (15-37) Alanine Aminotransferase (ALT/SGPT) 24 U/L (16-63) Alkaline Phosphatase 100 U/L (46-116) Creatine Kinase 102 U/L (39-308) Troponin I Quantitative < 0.017 ng/mL (0.000-0.055) QN-Ctn-K-Type Natriuretic Peptide 67 pg/mL (0-124) Total Protein 7.4 g/dL (6.4-8.2) Albumin 3.5 g/dL (3.4-5.0) Albumin/Globulin Ratio 0.9 (1.0-1.7) Thyroid Stimulating Hormone (TSH) 0.676 uIU/mL (0.358-3.74) Ethyl Alcohol Level < 10 mg/dL (0-10) Glucose (Fingerstick) 291 mg/dL (70-99) Triglycerides Level 274 mg/dL (0-150) Cholesterol Level 164 mg/dL (0-200) LDL Cholesterol, Calculated 87 mg/dL (0-100) VLDL Cholesterol, Calculated 55 mg/dL (0-40) Non-HDL Cholesterol Calculated 142 mg/dL (0-129) HDL Cholesterol 22 mg/dL (40-60) Cholesterol/HDL Ratio 7.5 Test 12/22/16 07:23 Glucose (Fingerstick) 217 mg/dL (70-99) Review of Systems Review of Systems HEENT: slightly improved vision on left visual field, denies vision change in right visual field Neuro: denies numbness, tingling, weakness Assessment and Plan Assessmemt and Plan Problems Medical Problems: (1) Left homonymous hemianopsia Status: Acute Acute CVA Left homonymous hemianopsia Tobacco use Hypertension DM Hyperlipidemia Degenerative spine disease Plan: -Echo with bubble study planned today -Consider cardiology consult if echo comes back abnormal -Neuro is following -Patient started on Lipitor for hyperlipidemia -Recheck AM labs -Hg A1C pending -PT/OT as appropriate -Subspecialty input appreciated Problems: Comment Review of Relevant I have reviewed the following items lakeisha (where applicable) has been applied. Labs Laboratory Tests Test 12/21/16 12:45 12/21/16 13:10 12/21/16 20:58 12/22/16 03:22 Urine Opiates Screen Neg (NEG) Urine Methadone Screen Neg (NEG) Urine Barbiturates Neg (NEG) Urine Phencyclidine Screen Neg (NEG) Urine Amphetamine/Methamphetamine Neg (NEG) Urine Benzodiazepines Screen Neg (NEG) Urine Cocaine Screen Neg (NEG) Urine Cannabinoids Screen Neg (NEG) Urine Ethyl Alcohol Neg (NEG) White Blood Count 10.2 x10^3/uL (4.0-11.0) 9.1 x10^3/uL (4.0-11.0) Red Blood Count 4.99 x10^6/uL (4.30-5.70) 4.60 x10^6/uL (4.30-5.70) Hemoglobin 15.4 g/dL (13.0-17.5) 14.1 g/dL (13.0-17.5) Hematocrit 44.2 % (39.0-53.0) 40.8 % (39.0-53.0) Mean Corpuscular Volume 89 fL (79-100) 89 fL (79-100) Mean Corpuscular Hemoglobin 31 pg (25-35) 31 pg (25-35) Mean Corpuscular Hemoglobin Concent 35 g/dL (31-37) 35 g/dL (31-37) Red Cell Distribution Width 13.2 % (11.5-14.5) 13.4 % (11.5-14.5) Platelet Count 165 x10^3/uL (140-400) 148 x10^3/uL (140-400) Neutrophils (%) (Auto) 57 % (31-73) 46 % (31-73) Lymphocytes (%) (Auto) 34 % (24-48) 44 % (24-48) Monocytes (%) (Auto) 6 % (0-9) 6 % (0-9) Eosinophils (%) (Auto) 2 % (0-3) 3 % (0-3) Basophils (%) (Auto) 1 % (0-3) 1 % (0-3) Neutrophils # (Auto) 5.8 x10^3uL (1.8-7.7) 4.2 x10^3uL (1.8-7.7) Lymphocytes # (Auto) 3.4 x10^3/uL (1.0-4.8) 4.0 x10^3/uL (1.0-4.8) Monocytes # (Auto) 0.6 x10^3/uL (0.0-1.1) 0.6 x10^3/uL (0.0-1.1) Eosinophils # (Auto) 0.2 x10^3/uL (0.0-0.7) 0.3 x10^3/uL (0.0-0.7) Basophils # (Auto) 0.1 x10^3/uL (0.0-0.2) 0.1 x10^3/uL (0.0-0.2) Prothrombin Time 12.7 SEC (11.7-14.0) Prothromb Time International Ratio 1.0 (0.8-1.1) Activated Partial Thromboplast Time 26 SEC (24-38) Sodium Level 137 mmol/L (136-145) 137 mmol/L (136-145) Potassium Level 4.5 mmol/L (3.5-5.1) 4.0 mmol/L (3.5-5.1) Chloride Level 104 mmol/L (98-107) 104 mmol/L (98-107) Carbon Dioxide Level 26 mmol/L (21-32) 25 mmol/L (21-32) Anion Gap 7 (6-14) 8 (6-14) Blood Urea Nitrogen 22 mg/dL (8-26) 20 mg/dL (8-26) Creatinine 0.9 mg/dL (0.7-1.3) 0.9 mg/dL (0.7-1.3) Estimated GFR (Cockcroft-Gault) 85.0 85.0 BUN/Creatinine Ratio 24 (6-20) Glucose Level 142 mg/dL (70-99) 197 mg/dL (70-99) Calcium Level 9.5 mg/dL (8.5-10.1) 8.7 mg/dL (8.5-10.1) Magnesium Level 1.8 mg/dL (1.8-2.4) Total Bilirubin 0.3 mg/dL (0.2-1.0) Aspartate Amino Transf (AST/SGOT) 16 U/L (15-37) Alanine Aminotransferase (ALT/SGPT) 24 U/L (16-63) Alkaline Phosphatase 100 U/L (46-116) Creatine Kinase 102 U/L (39-308) Troponin I Quantitative < 0.017 ng/mL (0.000-0.055) XV-Bgn-E-Type Natriuretic Peptide 67 pg/mL (0-124) Total Protein 7.4 g/dL (6.4-8.2) Albumin 3.5 g/dL (3.4-5.0) Albumin/Globulin Ratio 0.9 (1.0-1.7) Thyroid Stimulating Hormone (TSH) 0.676 uIU/mL (0.358-3.74) Ethyl Alcohol Level < 10 mg/dL (0-10) Glucose (Fingerstick) 291 mg/dL (70-99) Triglycerides Level 274 mg/dL (0-150) Cholesterol Level 164 mg/dL (0-200) LDL Cholesterol, Calculated 87 mg/dL (0-100) VLDL Cholesterol, Calculated 55 mg/dL (0-40) Non-HDL Cholesterol Calculated 142 mg/dL (0-129) HDL Cholesterol 22 mg/dL (40-60) Cholesterol/HDL Ratio 7.5 Test 12/22/16 07:23 Glucose (Fingerstick) 217 mg/dL (70-99) Laboratory Tests Test 12/21/16 12:45 12/21/16 13:10 12/21/16 20:58 12/22/16 03:22 Urine Opiates Screen Neg (NEG) Urine Methadone Screen Neg (NEG) Urine Barbiturates Neg (NEG) Urine Phencyclidine Screen Neg (NEG) Urine Amphetamine/Methamphetamine Neg (NEG) Urine Benzodiazepines Screen Neg (NEG) Urine Cocaine Screen Neg (NEG) Urine Cannabinoids Screen Neg (NEG) Urine Ethyl Alcohol Neg (NEG) White Blood Count 10.2 x10^3/uL (4.0-11.0) 9.1 x10^3/uL (4.0-11.0) Red Blood Count 4.99 x10^6/uL (4.30-5.70) 4.60 x10^6/uL (4.30-5.70) Hemoglobin 15.4 g/dL (13.0-17.5) 14.1 g/dL (13.0-17.5) Hematocrit 44.2 % (39.0-53.0) 40.8 % (39.0-53.0) Mean Corpuscular Volume 89 fL (79-100) 89 fL (79-100) Mean Corpuscular Hemoglobin 31 pg (25-35) 31 pg (25-35) Mean Corpuscular Hemoglobin Concent 35 g/dL (31-37) 35 g/dL (31-37) Red Cell Distribution Width 13.2 % (11.5-14.5) 13.4 % (11.5-14.5) Platelet Count 165 x10^3/uL (140-400) 148 x10^3/uL (140-400) Neutrophils (%) (Auto) 57 % (31-73) 46 % (31-73) Lymphocytes (%) (Auto) 34 % (24-48) 44 % (24-48) Monocytes (%) (Auto) 6 % (0-9) 6 % (0-9) Eosinophils (%) (Auto) 2 % (0-3) 3 % (0-3) Basophils (%) (Auto) 1 % (0-3) 1 % (0-3) Neutrophils # (Auto) 5.8 x10^3uL (1.8-7.7) 4.2 x10^3uL (1.8-7.7) Lymphocytes # (Auto) 3.4 x10^3/uL (1.0-4.8) 4.0 x10^3/uL (1.0-4.8) Monocytes # (Auto) 0.6 x10^3/uL (0.0-1.1) 0.6 x10^3/uL (0.0-1.1) Eosinophils # (Auto) 0.2 x10^3/uL (0.0-0.7) 0.3 x10^3/uL (0.0-0.7) Basophils # (Auto) 0.1 x10^3/uL (0.0-0.2) 0.1 x10^3/uL (0.0-0.2) Prothrombin Time 12.7 SEC (11.7-14.0) Prothromb Time International Ratio 1.0 (0.8-1.1) Activated Partial Thromboplast Time 26 SEC (24-38) Sodium Level 137 mmol/L (136-145) 137 mmol/L (136-145) Potassium Level 4.5 mmol/L (3.5-5.1) 4.0 mmol/L (3.5-5.1) Chloride Level 104 mmol/L (98-107) 104 mmol/L (98-107) Carbon Dioxide Level 26 mmol/L (21-32) 25 mmol/L (21-32) Anion Gap 7 (6-14) 8 (6-14) Blood Urea Nitrogen 22 mg/dL (8-26) 20 mg/dL (8-26) Creatinine 0.9 mg/dL (0.7-1.3) 0.9 mg/dL (0.7-1.3) Estimated GFR (Cockcroft-Gault) 85.0 85.0 BUN/Creatinine Ratio 24 (6-20) Glucose Level 142 mg/dL (70-99) 197 mg/dL (70-99) Calcium Level 9.5 mg/dL (8.5-10.1) 8.7 mg/dL (8.5-10.1) Magnesium Level 1.8 mg/dL (1.8-2.4) Total Bilirubin 0.3 mg/dL (0.2-1.0) Aspartate Amino Transf (AST/SGOT) 16 U/L (15-37) Alanine Aminotransferase (ALT/SGPT) 24 U/L (16-63) Alkaline Phosphatase 100 U/L (46-116) Creatine Kinase 102 U/L (39-308) Troponin I Quantitative < 0.017 ng/mL (0.000-0.055) FI-Tcg-G-Type Natriuretic Peptide 67 pg/mL (0-124) Total Protein 7.4 g/dL (6.4-8.2) Albumin 3.5 g/dL (3.4-5.0) Albumin/Globulin Ratio 0.9 (1.0-1.7) Thyroid Stimulating Hormone (TSH) 0.676 uIU/mL (0.358-3.74) Ethyl Alcohol Level < 10 mg/dL (0-10) Glucose (Fingerstick) 291 mg/dL (70-99) Triglycerides Level 274 mg/dL (0-150) Cholesterol Level 164 mg/dL (0-200) LDL Cholesterol, Calculated 87 mg/dL (0-100) VLDL Cholesterol, Calculated 55 mg/dL (0-40) Non-HDL Cholesterol Calculated 142 mg/dL (0-129) HDL Cholesterol 22 mg/dL (40-60) Cholesterol/HDL Ratio 7.5 Test 12/22/16 07:23 Glucose (Fingerstick) 217 mg/dL (70-99) Medications Current Medications Aspirin ([employer] Aspirin) 325 mg 1X ONCE PO Last administered on 12/21/16 14:57 ; Start 12/21/16 at 14:15; Stop 12/21/16 at 14:16; Status DC Ondansetron HCl (Zofran) 4 mg PRN Q8HRS PRN IV NAUSEA/VOMITING; Start 12/21/16 at 14:15; Stop 12/22/16 at 14:14 Fentanyl Citrate (Fentanyl 2ml Vial) 50 mcg PRN Q2HR PRN IV PAIN; Start at 14:15; Stop 12/22/16 at 14:14 Gadobutrol (Gadavist) 9 mmol 1X ONCE IV Last administered on 12/21/16 17:05; Start 12/21/16 at 16:45; Stop 12/21/16 at 16:46; Status DC Aspirin ([employer] S[employer] Aspirin) 325 mg DAILYWBKFT PO Last administered on 12/22/16 08: 15; Start 12/22/16 at 08:00 Lisinopril (Prinivil) 10 mg QHS PO Last administered on 12/21/16 20:21; Start 12/21/16 at 21:00 Metformin HCl (Glucophage) 1,000 mg BIDWMEALS PO Last administered on 08:15; Start 12/21/16 at 18:00 Glyburide (Diabeta) 10 mg BIDWMEALS PO Last administered on 12/22/16 08:15; Start 12/21/16 at 18:00 Atorvastatin Calcium (Lipitor) 10 mg QHS PO Last administered on 12/21/16t 20: 21; Start 12/21/16 at 21:00 Nicotine (Nicoderm Cq 21mg) 1 patch PRN DAILY PRN TD SMOKING CESSATION; Start 12/21/16 at 20:00 Nicotine Polacrilex (Nicorette Gum) 1 each PRN Q1HR PRN BC SMOKING CESSATION; Start 12/21/16 at 20:00 Active Scripts Active Reported Metformin Hcl 1,000 Mg Tablet 1,000 Mg PO BID [gliburide] 10 Mg PO BID Lisinopril 10 Mg Tablet 1 Tab PO QHS Vitals/I & O Vital Sign - Last 24 Hours 12/21/16 12/21/16 12/21/16 12/21/16 12:59 13:19 13:55 14:25 Temp 98.1 98.1 Pulse 80 76 70 70 Resp B/P (MAP) 157/83 (107) 123/73 (90) 122/71 (88) 126/66 (86) Pulse Ox 99 98 96 96 O2 Delivery Room Air Room Air Room Air Room Air 12/21/16 12/21/16 12/21/16 12/21/16 14:55 15:25 16:30 16:30 Temp 97.6 97.6 97.6 97.6 Pulse 68 68 88 88 Resp 18 18 B/P (MAP) 122/67 (85) 120/62 (81) 121/58 (79) 121/58 (79) Pulse Ox 96 99 97 97 O2 Delivery Room Air Room Air Room Air Room Air 12/21/16 12/21/16 12/21/16 12/21/16 19:45 20:00 20:21 23:12 Temp 99.7 98.8 99.7 98.8 Pulse 75 75 67 Resp 18 18 B/P (MAP) 113/65 (81) 113/65 140/72 (94) Pulse Ox 96 97 O2 Delivery Room Air Room Air Room Air 12/22/16 12/22/16 12/22/16 03:12 07:15 08:00 Temp 98.3 98.8 98.3 98.8 Pulse 65 72 Resp 18 18 B/P (MAP) 126/67 (86) 128/70 (89) Pulse Ox 97 98 O2 Delivery Room Air Room Air Room Air Intake and Output 12/21/16 12/21/16 12/22/16 15:00 23:00 07:00 Intake Total 240 ml 530 ml Balance 240 ml 530 ml GARCIA LUU III DO December 22, 2016 11:14
[2016-12-22 14:49] VITALS: BP 117/67
--- NOTE | 2016-12-22 15:39 | PDOC ---
PROGRESS NOTES Assessment Assessment Subacute right medial temporal lobe infract. Left homonymous hemianopia x 3 days before coming the ER of [facility]. DM with hyperglycemia. HTN HLD Carpal tunnel syndrome. Degenerative spine disease. Smoking x 45 years. RECOMMENDATIONS/PLAN: Continue ASA 325 mg daily. Lipitor 20 mg HS. Treat medical diseases. Control hyperglycemia. MRA w/o contras (Patient wanted to have this study as well). FU with ophthalmology for visual field exam. Patient education for secondary stroke prevention. Smoking cessation. I had a lengthy discussion with him and his at bedside on a daily basis. Driving issues per [facility]. Brain MRI performed: Right medial temporal lobe infract. Carotid A US + Doppler: No high grade stenosis. Echo + Bubble study: pending. Fasting lipid panel: high. CXR: No mass found. HISTORY OF THE PRESENT ILLNESS: 66-y-old male patient with Hx of HTN, HLD, DM developed symptoms of visual disturbances described as only can see a right half size of object but not the left half. His both eyes had deficits. he stated he has been having such visual symptoms for about 3 days, but sensory of motor deficits. He was seen in eye clinic then came to the ER of [facility]. PAST MEDICAL HISTORY: Please see above. PAST SURGERY HISTORY: Cholecystectomy Neck and back surgeries. Right knee surgery. ALLERGY: Reviewed. MEDICATIONS: Refer to [facility] FAMILY HISTORY: His father had CVA. His mother had fungal pneumonia. SOCIAL HISTORY: Lives with his at home. Denies illicit drug use. He smokes 2 packs of cigarettes a day for 45 years. He drinks alcohol occasionally. REVIEW OF SYSTEMS: Constitutional: No malnutrition, weight loss, cachexia. Head: No traumatic brain or head injury. Skin: No edema, or rash. Ear: No infection. Eyes: No vision loss or color blindness. Nose: No bleeding or purulent discharges. Hearing: No hearing decrease. Neck: No injury. Cardiac: HTN, HLD. Pulmonary: No pneumonia. GI: No GI ulcer, GI bleeding. Urinary/genital: No dysuria, incontinence, urinary retention. Endocrinologic: Diabetes Mellitus. Skeletomuscular: No muscular atrophy, deformity. Neurological: see HP. Psychiatric: Denies drug use/abuse. Otherwise, not [id number] review of systems. PHYSICAL EXAMINATION: General appearance is in subacute distress. HEENT: Normocephalic and nontraumatic. Eyes, nose, ears, and throat are unremarkable. Neck is supple. No lymphadenopathy. No crepitus. Cardiovascular: S1, S2, regular rate and rhythm. Pulmonary: Clear to auscultation bilaterally. Abdomen: Bowel sounds are positive. Abdomen is soft, nontender, and nondistended. Extremities: No rash, lesions, or edema. No restriction of range of motion NEUROLOGICAL EXAMINATION: Alert Oriented to time, place and person. PERRL. EOMI. Left homonymous hemianopia. CN: no other focal findings. Muscle tone: within normal. Muscle strength: 5 DTR: 2+ Plantar reflex: Flexor response bilaterally Gait: not examined in bed. Sensory exam: no obvious abnormal findings. No acute cerebellar signs elicited. F-T-N test fine. Objective Objective Vital Signs Date Time Temp Pulse Resp B/P (MAP) Pulse Ox O2 Delivery O2 Flow Rate FiO2 12/22/16 14:49 98.8 78 16 117/67 (84) 99 Room Air 98.8 Intake and Output 12/22/16 07:00 Intake Total 770 ml Balance 770 ml Intake Oral 770 ml # Voids 4 Vitals Signs Vitals VS - Last 72 Hours, by Label Date Time Temp Pulse Resp B/P (MAP) Pulse Ox O2 Delivery O2 Flow Rate FiO2 12/22/16 14:49 98.8 78 16 117/67 (84) 99 Room Air 98.8 12/22/16 10:55 98.5 70 18 133/73 (93) 99 Room Air 98.5 12/22/16 08:00 Room Air 12/22/16 07:15 98.8 72 18 128/70 (89) 98 Room Air 98.8 12/22/16 03:12 98.3 65 18 126/67 (86) 97 Room Air 98.3 12/21/16 23:12 98.8 67 18 140/72 (94) 97 Room Air 98.8 12/21/16 20:21 75 113/65 12/21/16 20:00 Room Air 12/21/16 19:45 99.7 75 18 113/65 (81) 96 Room Air 99.7 12/21/16 16:30 97.6 88 18 121/58 (79) 97 Room Air 97.6 12/21/16 16:30 97.6 88 18 121/58 (79) 97 Room Air 97.6 12/21/16 15:25 68 18 120/62 (81) 99 Room Air 12/21/16 14:55 68 18 122/67 (85) 96 Room Air 12/21/16 14:25 70 17 126/66 (86) 96 Room Air 12/21/16 13:55 70 17 122/71 (88) 96 Room Air 12/21/16 13:19 76 19 123/73 (90) 98 Room Air 12/21/16 12:59 98.1 80 18 157/83 (107) 99 Room Air 98.1 Laboratory Laboratory Laboratory Tests Test 12/21/16 20:58 12/22/16 03:22 12/22/16 07:23 12/22/16 11:56 Glucose (Fingerstick) 291 mg/dL (70-99) 217 mg/dL (70-99) 219 mg/dL (70-99) White Blood Count 9.1 x10^3/uL (4.0-11.0) Red Blood Count 4.60 x10^6/uL (4.30-5.70) Hemoglobin 14.1 g/dL (13.0-17.5) Hematocrit 40.8 % (39.0-53.0) Mean Corpuscular Volume 89 fL (79-100) Mean Corpuscular Hemoglobin 31 pg (25-35) Mean Corpuscular Hemoglobin Concent 35 g/dL (31-37) Red Cell Distribution Width 13.4 % (11.5-14.5) Platelet Count 148 x10^3/uL (140-400) Neutrophils (%) (Auto) 46 % (31-73) Lymphocytes (%) (Auto) 44 % (24-48) Monocytes (%) (Auto) 6 % (0-9) Eosinophils (%) (Auto) 3 % (0-3) Basophils (%) (Auto) 1 % (0-3) Neutrophils # (Auto) 4.2 x10^3uL (1.8-7.7) Lymphocytes # (Auto) 4.0 x10^3/uL (1.0-4.8) Monocytes # (Auto) 0.6 x10^3/uL (0.0-1.1) Eosinophils # (Auto) 0.3 x10^3/uL (0.0-0.7) Basophils # (Auto) 0.1 x10^3/uL (0.0-0.2) Sodium Level 137 mmol/L (136-145) Potassium Level 4.0 mmol/L (3.5-5.1) Chloride Level 104 mmol/L (98-107) Carbon Dioxide Level 25 mmol/L (21-32) Anion Gap 8 (6-14) Blood Urea Nitrogen 20 mg/dL (8-26) Creatinine 0.9 mg/dL (0.7-1.3) Estimated GFR (Cockcroft-Gault) 85.0 Glucose Level 197 mg/dL (70-99) Calcium Level 8.7 mg/dL (8.5-10.1) Triglycerides Level 274 mg/dL (0-150) Cholesterol Level 164 mg/dL (0-200) LDL Cholesterol, Calculated 87 mg/dL (0-100) VLDL Cholesterol, Calculated 55 mg/dL (0-40) Non-HDL Cholesterol Calculated 142 mg/dL (0-129) HDL Cholesterol 22 mg/dL (40-60) Cholesterol/HDL Ratio 7.5 Medication Medications Current Medications Aspirin ([employer] Aspirin) 325 mg DAILYWBKFT PO Last administered on 12/22/16 08: 15; Start 12/22/16 at 08:00 Atorvastatin Calcium (Lipitor) 10 mg QHS PO Last administered on 12/21/16 20: 21; Start 12/21/16 at 21:00 Gadobutrol (Gadavist) 9 mmol 1X ONCE IV Last administered on 12/21/16 17:05; Start 12/21/16 at 16:45; Stop 12/21/16 at 16:46; Status DC Glyburide (Diabeta) 10 mg BIDWMEALS PO Last administered on 12/22/16 08:15; Start 12/21/16 at 18:00 Lisinopril (Prinivil) 10 mg QHS PO Last administered on 12/21/16 20:21; Start 12/21/16 at 21:00 Metformin HCl (Glucophage) 1,000 mg BIDWMEALS PO Last administered on 08:15; Start 12/21/16 at 18:00 Nicotine (Nicoderm Cq 21mg) 1 patch PRN DAILY PRN TD SMOKING CESSATION; Start 12/21/16 at 20:00 Nicotine Polacrilex (Nicorette Gum) 1 each PRN Q1HR PRN BC SMOKING CESSATION; Start 12/21/16 at 20:00 Comment Review of Relevant I have reviewed the following items lakeisha (where applicable) has been applied. RICK HALL MD December 22, 2016 15:39
[2016-12-22 19:20] VITALS: BP 131/67
--- NOTE | 2016-12-22 20:22 | CARD ---
APPROVED REPORT EXAM: Two-dimensional and M-mode echocardiogram with Doppler and color Doppler. Other Information Quality : Good INDICATION CVA/TIA Echo Enhancing Agent Agent/Amount Used: Agitated Saline 8mL 2D DIMENSIONS RVDd3.1 (2.9-3.5cm)Left Atrium(2D)3.1 (1.6-4.0cm) IVSd0.9 (0.7-1.1cm)Aortic Root(2D)3.2 (2.0-3.7cm) LVDd4.9 (3.9-5.9cm)LVOT Diameter2.4 (1.8-2.4cm) PWd0.9 (0.7-1.1cm)LVDs3.1 (2.5-4.0cm) FS (%) 30.0 %SV75.8 ml LVEF(%)60.0 (>50%) Aortic Valve AoV Peak Braden.123.9cm/sAoV VTI21.7cm AO Peak GR.6.1mmHgLVOT Peak Braden.102.7cm/s LVOT VTI 22.43cmAO Mean GR.3mmHg FANTASMA (VMAX)3.80mi2DMX (VTI)4.62cm2 Mitral Valve MV E Sivqbwzu95.7cm/sMV DECEL [id number] MV A Iogfkazo19.4cm/sMV [id number] E/A Ratio0.8MVA (PHT)2.59cm2 TDI E/Lateral E'8.7E/Medial E'12.4 Tricuspid Valve TR P. Icqlsggr049tq/sRAP [id number] TR Peak Gr.81lsHjQKIT86igNw Pulmonary Vein S1 Fmtjggvd73.2cm/sD2 Jgwdtbji53.1cm/s PVa [id number] LEFT VENTRICLE The left ventricle is normal size. There is normal left ventricular wall thickness. The left ventricu lar systolic function is normal and the ejection fraction is 65-70%. There is normal LV segmental wal l motion. Transmitral Doppler flow pattern is Grade I-abnormal relaxation pattern. RIGHT VENTRICLE The right ventricle is normal size. The right ventricular systolic function is normal. ATRIA The left atrium size is normal. The right atrium size is normal. The interatrial septum is intact wit h no evidence for an atrial septal defect or patent foramen ovale as noted on 2-D or Doppler imaging. AORTIC VALVE The aortic valve is calcified but opens well. Doppler and Color Flow revealed no significant aortic r egurgitation. There is no significant aortic valvular stenosis. MITRAL VALVE The mitral valve is normal in structure and function. There is no evidence of mitral valve prolapse. There is no mitral valve stenosis. Doppler and Color Flow revealed no mitral valve regurgitation note d. TRICUSPID VALVE The tricuspid valve is normal in structure and function. Doppler and Color Flow revealed physiologica l tricuspid regurgitation. There is mild pulmonary hypertension. The PA pressure was estimated at 37 mmHg. There is no tricuspid valve stenosis. PULMONIC VALVE The pulmonary valve is normal in structure and function. Doppler and Color Flow revealed no pulmonic valvular regurgitation. There is no pulmonic valvular stenosis. GREAT VESSELS The aortic root is normal in size. The ascending aorta is normal in size. The IVC is normal in size a nd collapses >50% with inspiration. PERICARDIAL EFFUSION There is no evidence of significant pericardial effusion. Critical Notification Critical Value: No <Conclusion> The left ventricle is normal size. There is normal left ventricular wall thickness. The left ventricular systolic function is normal and the ejection fraction is 65-70%. Transmitral Doppler flow pattern is Grade I-abnormal relaxation pattern. There is no mitral valve stenosis. Doppler and Color Flow revealed no mitral valve regurgitation noted. The left atrium is of a normal size. There is no aortic stenosis or regurgitation The right ventricle is of a normal size with nornal systolic function Doppler and Color Flow revealed physiological tricuspid regurgitation. There is mild pulmonary hypertension. The PA pressure was estimated at 37 mmHg. The pulmonic valve is noemal. Agitated saline injected in the right heart diid not show a right to left shunt
[2016-12-22] MEDS ORDERED: ATORVASTATIN CALCIUM 10 MG TABLET. PO SCH (21:00)
[2016-12-22] MEDS: LISINOPRIL 10 MG TABLET PO SCH (21:54)
[2016-12-22 23:20] VITALS: BP 124/58
[2016-12-23 03:20] VITALS: BP 165/69
[2016-12-23 05:01] LABS: BASO # 0.1 x10^3/uL (0.0-0.2); BASO % 1 % (0-3); EOS % 3 % (0-3); HEMATOCRIT 40.4 % (39.0-53.0); HEMOGLOBIN 13.9 g/dL (13.0-17.5); LYMPH # 3.4 x10^3/uL (1.0-4.8); LYMPH % 40 % (24-48); MEAN CORPUSCULAR HEMOGLOBIN 31 pg (25-35); MEAN CORPUSCULAR HGB CONC 34 g/dL (31-37); MEAN CORPUSCULAR VOLUME 89 fL (79-100); MONO % 7 % (0-9); NEUT % 49 % (31-73); PLATELET COUNT 137 x10^3/uL (140-400); RED BLOOD COUNT 4.52 x10^6/uL (4.30-5.70); RED CELL DISTRIBUTION WIDTH 13.1 % (11.5-14.5); WHITE BLOOD COUNT 8.4 x10^3/uL (4.0-11.0)
[2016-12-23 05:18] LABS: CALCIUM 8.8 mg/dL (8.5-10.1); CREATININE 0.9 mg/dL (0.7-1.3); POTASSIUM 4.3 mmol/L (3.5-5.1)
[2016-12-23 07:00] VITALS: BP 143/72
--- NOTE | 2016-12-23 09:51 | RAD ---
Examination: MR angiogram brain History: Acute stroke follow-up Computed: MRI brain from 12/21/2016 TECHNIQUE: MR angiogram of the brain using time of flight imaging. Multi planar MIP reformatted images were obtained. Findings: MR angiogram of the brain demonstrates normal signal intensity in the bilateral internal carotid, anterior, middle, and posterior cerebral, and vertebral arteries as well as the basilar artery. No focal aneurysm or stenosis is identified. IMPRESSION: Normal MR angiogram brain.
[2016-12-23] MEDS: glyBURIDE 5 MG TABLET PO SCH (10:04)
[2016-12-23] MEDS: ASPIRIN 325 MG TABLET PO SCH (10:05)
[2016-12-23 11:00] VITALS: BP 142/75
[2016-12-23] MEDS ORDERED: ATOR20TA58 PO ×2 (11:47→11:48)
== END 2016-12-23 12:11 | disposition home or self-care (01) | DRG 66 ==
LOC: ER 12:34 → ED HOLD 13:38 → 6 SOUTH 16:03
PROVIDERS: ADMIT Internal Medicine; ATTEND Internal Medicine
DX: I63.9 Cerebral infarction, unspecified (principal); E11.9 Type 2 diabetes mellitus without complications; E78.5 Hyperlipidemia, unspecified; F17.210 Nicotine dependence, cigarettes, uncomplicated; H53.462 Homonymous bilateral field defects, left side; I10 Essential (primary) hypertension; M48.9 Spondylopathy, unspecified; G56.00 Carpal tunnel syndrome, unspecified upper limb; G56.03 Carpal tunnel syndrome, bilateral upper limbs; E11.65 Type 2 diabetes mellitus with hyperglycemia; Z82.3 Family history of stroke; Z79.899 Other long term (current) drug therapy; Z90.49 Acquired absence of other specified parts of digestive tract; Z79.82 Long term (current) use of aspirin
CPT/HCPCS: 36415; 70450; 70544; 70553; 71020; 80048; 80053; 80061; 82550; 82947; 83036; 83735; 83880; 84443; 84484; 85027; 85610; 85730; 93880; A9585; C8929; G0480; G0481

== ENCOUNTER → 2017-05-09 | Outpatient (CLI) | payer OTHER ==
[~2017-05-09] MED LIST changes: +ATOR20TA58 PO; +LISI10TA2 PO; +METF-620 PO; +gliburide PO
--- NOTE | 2017-05-09 11:00 | RAD ---
EXAM: Cervical spine, 2 views. HISTORY: Pain. COMPARISON: None. FINDINGS: Frontal and lateral views of the cervical spine are obtained. There is instrumented anterior spinal fusion and interbody fusion at C5-C6. There is degenerative endplate remodeling with disc space narrowing and osteophytosis primarily at C3-C4 and C6-C7. There is facet arthropathy at multiple levels. There is no significant listhesis. IMPRESSION: 1. Multilevel degenerative change of the cervical spine, primarily at C3-C4 and C6-C7. 2. Instrumented fusion at C5-C6.
--- NOTE | 2017-05-09 11:01 | RAD ---
EXAM: Thoracic spine, 3 views. HISTORY: Pain. COMPARISON: None. FINDINGS: Frontal, lateral and swimmer's views of the thoracic spine are obtained. There is no listhesis. The vertebral bodies are normal in height and the disc spaces are preserved. There is cervical spinal fusion instrumentation at C5-C6. There is degenerative change change within the cervical spine, described on cervical spine radiographs obtained on the same date. There is mild degenerative endplate remodeling and spurring throughout the thoracic spine. IMPRESSION: 1. No acute osseous finding. 2. Mild multilevel degenerative changes within the thoracic spine 3. Degenerative and postoperative changes involving the cervical spine, described on the cervical spine radiograph report submitted on the same date.
--- NOTE | 2017-05-09 11:02 | RAD ---
EXAM: Lumbar spine, 2 views. HISTORY: Pain. COMPARISON: None. FINDINGS: Frontal and lateral views of the lumbar spine are obtained. There is slight retrolisthesis of L2 on L3, L3 on L4 and L4 and L5. There is degenerative endplate remodeling with disc space narrowing and facet arthropathy at L5-S1, and to lesser extent, L4-L5. There is additional mild endplate remodeling at the remainder of the lumbar levels. IMPRESSION: 1. Multilevel degenerative change within the lumbar spine, primarily at L5-S1. 2. No acute osseous finding.
== END | disposition home or self-care (01) ==
LOC: RAD 10:14
PROVIDERS: ATTEND Physical Medicine & Rehabilitation
DX: M47.894 Other spondylosis, thoracic region (principal); M50.323 Other cervical disc degeneration at C6-C7 level; M47.897 Other spondylosis, lumbosacral region; R07.9 Chest pain, unspecified
CPT/HCPCS: 72040; 72072; 72100